=== PATIENT | female | born 1990 | race American Indian/Alaskan Native ===

== ENCOUNTER 2016-06-01 12:00 | Emergency (ER) | payer MEDICAID ==
--- NOTE | 2016-06-01 12:19 | Emergency Department Report ---
Chief Complaint: Abdominal Pain Stated Complaint: 17 WKS /ABD PAIN /NO BOWEL MVMNT 2WKS Time Seen by Provider: 06/01/16 12:10 - HPI History of Present Illness: 25-year-old female A2 L0, presents today complaining of left-sided pain since 8 PM last night. Patient is currently 17 weeks with her last ultrasound being 4 days ago. Patient states she has had similar abdominal pain every night 1 month, but this pain has prolonged. Positive for nausea, dizziness, shortness of breath. Positive for constipation 2 weeks. Denies vaginal bleeding, discharge, dysuria, fever, chills, chest pain. - ROS Review of Systems: Per HPI - Exam Vital Signs: Vital Signs 06/01/16 12:07 Temperature 98.2 F Pulse Rate 85 Respiratory 18 Rate Blood Pressure 108/64 O2 Sat by Pulse 100 Oximetry Physical Exam: General: 25-year-old female in no acute distress. Well-developed, well- nourished. CV: Regular rate and rhythm. Lungs: Clear to auscultation bilaterally. Abdomen: Generalized tenderness to palpation, worse in the lower abdomen. Positive for minimal guarding. MSE screening note: Focused history and physical exam performed. Due to findings the following was ordered: ED Disposition for MSE Condition: Stable Instructions: Abdominal Pain (ED)
[2016-06-01 12:49] LABS: Basophils % (Auto) 0.4 % (0.0-1.8); Eosinophils % (Auto) 1.4 % (0.0-4.3); Hematocrit 34.3 % (30.3-42.9); Hemoglobin 11.5 gm/dl (10.1-14.3); Mean Corpuscular HGB Conc 34 % (30-34); Mean Corpuscular Hemoglobin 30 pg (28-32); Mean Corpuscular Volume 90 fl (79-97); Platelet Count 313 K/mm3 (140-440); Red Blood Count 3.79 M/mm3 (3.65-5.03); Red Cell Distribution Width 13.6 % (13.2-15.2); White Blood Count 6.7 K/mm3 (4.5-11.0)
[2016-06-01 12:59] LABS: Bilirubin,Urine NEG (Negative); Blood,Urine NEG (Negative); Ketones,Urine NEG (Negative); Leukocyte Esterase,Urine NEG (Negative); Mucus,Urine FEW /HPF; Nitrite,Urine NEG (Negative); Protein,Urine <15 mg/dL mg/dL (Negative); Urobilinogen,Urine < 2.0 mg/dL (<2.0); WBC,Urine < 1.0 /HPF (0.0-6.0)
[2016-06-01 13:05] LABS: Amylase 102 units/L (27-131); Anion Gap 19 mmol/L; Blood Urea Nitrogen 5 mg/dL (7-17); Calcium 9.3 mg/dL (8.4-10.2); Carbon Dioxide 22 mmol/L (22-30); Chloride 99.3 mmol/L (98-107); Glucose 87 mg/dL (65-100); Lipase 25 units/L (13-60); Potassium 4.1 mmol/L (3.6-5.0); Sodium 136 mmol/L (137-145)
--- NOTE | 2016-06-01 14:54 | Ultrasound Report ---
OB ULTRASOUND GREATER THAN 14 WEEKS INDICATION: Left lower abdominal pain. COMPARISON: None similar during this gestation. TECHNIQUE: Transabdominal grayscale ultrasound with Doppler interrogation. Gestation: Simmons Position: Breech Amniotic Fluid: WNL < 24 weeks, subjective Placenta: Posterior Placental Grade: I Heart Rate: 153 BPM Cervical length: 3.4 cm (Normal > 3 cm) It is too early for a anatomical survey BPD: 3.6 cm = 17 w 1 d HC: 13.8 cm = 17 w 1 d AC: 11.7 cm = 17 w 3 d FL: 2.5 cm = 17 w 4 d HC/AC Ratio: 1.18 Cephalic Index: 85.6 Estimated Weight: 196 grams Clinical age = 17 w 1 d EDC: 11/08/2016 US Gest. Age = 17 w 2 d EDC: 11/07/2016 NOTE: Approximately 3.5 x 2.5 x 3.4 cm calcified fibroid posterior to the placenta with posterior acoustic shadowing may be noted as on image 6, amongst others. CONCLUSION: Single, viable intrauterine gestation with ultrasound estimated age of 17 weeks and 2 days and EDC of 11/07/2016, currently in breech lie with details and other findings as a fibroid, as above. Thank you for the opportunity to participate in this patient's care.
[2016-06-01 15:46] VITALS: BP 97/51
[2016-06-01] MEDS ORDERED: NORCO 5/325 PO ONE (16:03)
--- NOTE | 2016-06-01 17:27 | Emergency Department Report ---
ED Abdominal Pain HPI - General Chief Complaint: Abdominal Pain Stated Complaint: 17 WKS /ABD PAIN /NO BOWEL MVMNT 2WKS Time Seen by Provider: 06/01/16 12:10 Source: patient Mode of arrival: Ambulatory Limitations: No Limitations - History of Present Illness Initial Comments: Patient presents with left lower abdominal pain, she states she has not had a bowel movement x 2 weeks. She is 17 weeks . She states she has tried stool softeners, and hot tea with no relief. She denies any vaginal bleeding at this time. She denies vomiting, dysuria, chest pain, sob. She does admit to nausea that happens with the abdominal pain and states she can feel a "knot" in her lower abdomen at times when the pain comes. She denies fever and chills. MD Complaint: abdominal pain -: Gradual, month(s) (1, but increased over 2 weeks with no bowel movements.) Location: LLQ Radiation: LLQ Severity: moderate Severity scale (0 -10): 8 Quality: sharp Consistency: intermittent Improves With: nothing Worsens With: other (at night) Associated Symptoms: nausea, constipation - Related Data Allergies Allergy/AdvReac Type Severity Reaction Status Date / Time latex Allergy Unknown Verified 06/01/16 12:10 ED Review of Systems ROS: Stated complaint: 17 WKS /ABD PAIN /NO BOWEL MVMNT 2WKS Other details as noted in HPI Constitutional: denies: chills, fever Respiratory: denies: cough, shortness of breath, wheezing Cardiovascular: denies: chest pain, palpitations, edema, syncope Gastrointestinal: abdominal pain, nausea, constipation. denies: vomiting, diarrhea Genitourinary: denies: urgency, dysuria, frequency, discharge Musculoskeletal: denies: back pain, joint swelling, arthralgia Skin: denies: rash, lesions Neurological: denies: headache, weakness, paresthesias ED Past Medical Hx - Past Medical History Additional medical history: fibroids - Surgical History Past Surgical History?: No - Social History Smoking Status: Never Smoker Substance Use Type: None ED Physical Exam - General Limitations: No Limitations General appearance: alert, in no apparent distress - Head Head exam: Present: atraumatic, normocephalic - Neck Neck exam: Present: normal inspection, full ROM - Respiratory Respiratory exam: Present: normal lung sounds bilaterally. Absent: respiratory distress, wheezes, rales, rhonchi - Cardiovascular Cardiovascular Exam: Present: regular rate, normal rhythm. Absent: systolic murmur, diastolic murmur, rubs, gallop - GI/Abdominal GI/Abdominal exam: Present: soft, normal bowel sounds - Extremities Exam Extremities exam: Present: normal inspection, full ROM - Back Exam Back exam: Present: normal inspection, full ROM. Absent: tenderness - Neurological Exam Neurological exam: Present: alert, oriented X3 - Psychiatric Psychiatric exam: Present: normal affect, normal mood - Skin Skin exam: Present: warm, dry, intact, normal color. Absent: rash ED Course Vital Signs 06/01/16 06/01/16 12:07 15:45 Temperature 98.2 F 98.2 F Pulse Rate 85 79 Respiratory 18 16 Rate Blood Pressure 108/64 Blood Pressure 97/51 [Left] O2 Sat by Pulse 100 100 Oximetry ED Medical Decision Making - Lab Data Result diagrams: 06/01/16 12:30 06/01/16 12:30 - Medical Decision Making Patient presents with abdominal pain and constipation x 2 weeks. Her cmp, lipase, cbc are wnl, her vitals are wnl, her US was wnl. I spoke with Dr. Palma about this patient, he admits that it appears dx is constipation. Patient will need to increase fluid intake, take walks, increase fiber intake, may take stool softener and may try Metamucil otc. - Differential Diagnosis constipation, miscarriage Critical Care Time: No Critical care attestation.: If time is entered above; I have spent that time in minutes in the direct care of this critically ill patient, excluding procedure time. ED Disposition Clinical Impression: Constipation during , Abdominal pain during Disposition: DISCHARGED TO HOME OR SELFCARE Is pt being admited?: No Does the pt Need Aspirin: No Condition: Stable Instructions: Abdominal Pain (ED), Constipation (ED), High Fiber Diet (ED) Additional Instructions: Increasing your fluid (water) intake, exercise, walking, Metamucil over-the- counter, stool softeners can aid in constipation during . Follow up with your OB as soon as possible. Forms: Work/School Release Form(ED) Time of Disposition: 17:37
== END 2016-06-01 18:11 | disposition home or self-care (01) ==
LOC: ED 12:00
DX: O26.892 Other specified pregnancy related conditions, second trimester (principal); K59.00 Constipation, unspecified; R10.9 Unspecified abdominal pain; Z91.040 Latex allergy status; Z3A.17 17 weeks gestation of pregnancy
CPT/HCPCS: 36415; 76805; 80048; 81001; 82150; 83690; 84702; 85025